=== PATIENT | male | born 1950 | race Native Hawaiian/Other Pacific Islander ===

== ENCOUNTER 2021-04-26 08:42 | Outpatient (CLI) | payer OTHER | END 2021-04-26 21:33 | disposition home or self-care (01) | LOC: US 08:42 | PROVIDERS: ATTEND Internal Medicine | DX: R10.33 Periumbilical pain (principal); I65.23 Occlusion and stenosis of bilateral carotid arteries; I73.9 Peripheral vascular disease, unspecified; R06.02 Shortness of breath; R00.2 Palpitations; R09.89 Other specified symptoms and signs involving the circulatory and respiratory systems; M81.0 Age-related osteoporosis without current pathological fracture ==